=== PATIENT | female | born 1945 | race Caucasian/White ===

== ENCOUNTER 2022-03-04 13:30 | Observation (INO) ==
[2022-03-04] MEDS ORDERED: *HR* OxyCODONE Immed Rel 5 MG TABLET PO PRN (19:38)
[2022-03-04] MEDS ORDERED: Ondansetron ODT 4 MG TAB.RAPDIS SL PRN (19:38)
[2022-03-04] MEDS ORDERED: Naloxone 0.4 MG/ML INJ IVP PRN (19:38)
[2022-03-04] MEDS ORDERED: Melatonin 3 MG TABLET PO PRN (19:38)
[2022-03-04] MEDS ORDERED: Acetaminophen 325 MG TABLET PO PRN (19:38)
[2022-03-04] MEDS ORDERED: Perflutren Lipid Microsphere 1.3 ML in 0.9 % Sodium Chloride 8.7 ML IVP PRN (19:41)
[2022-03-04] MEDS ORDERED: Nitroglycerin 0.4 MG TAB.SUBL SL PRN (19:47)
[2022-03-04] MEDS ORDERED: *HR* Heparin 5,000 UNIT/ML VIAL IVP PRN ×2 (19:48)
[2022-03-04] MEDS ORDERED: Heparin 25,000UNIT/250ML 1/2NS 25,000 UNIT/250 ML IV.SOLN IVC SCH (20:00)
[2022-03-04 21:36] LABS: Hematocrit 36.3 % (35.3-44.9); Hemoglobin 12.8 g/dL (11.5-15.4); Mean Corpuscular HGB Conc 35.3 g/dL (31.6-35.5); Mean Corpuscular Hemoglobin 32.5 pg (28.0-33.3); Mean Corpuscular Volume 92.1 fL (83.0-100.0); Mean Platelet Volume 10.1 fL (9.4-12.4); Platelet Count 228 K/mcL (140-400); Red Blood Count 3.94 M/mcL (3.82-4.97); Red Cell Distribution Width 12.3 % (11.5-14.5); White Blood Count 6.6 K/mcL (4.3-11.1)
[2022-03-04 21:44] LABS: Heparin anti-factor XA UFH 0.35 IU/mL (0.30-0.70)
[2022-03-04 21:45] LABS: Prothrombin Time 11.6 Seconds (9.4-12.1)
[2022-03-04] MEDS: traZODone 50 MG TABLET PO PRN (21:48)
[2022-03-05 03:37] LABS: Hematocrit 36.2 % (35.3-44.9); Hemoglobin 12.2 g/dL (11.5-15.4); Mean Corpuscular HGB Conc 33.7 g/dL (31.6-35.5); Mean Corpuscular Hemoglobin 31.8 pg (28.0-33.3); Mean Corpuscular Volume 94.3 fL (83.0-100.0); Mean Platelet Volume 10.3 fL (9.4-12.4); Platelet Count 228 K/mcL (140-400); Red Blood Count 3.84 M/mcL (3.82-4.97); Red Cell Distribution Width 12.4 % (11.5-14.5); White Blood Count 5.9 K/mcL (4.3-11.1)
[2022-03-05 04:00] LABS: BUN/Creatinine Ratio 35 (6-26); Blood Urea Nitrogen 21 mg/dL (8-23); Calcium 9.4 mg/dL (8.6-10.3); Carbon Dioxide 28 mEq/L (23-29); Chloride 103 mEq/L (98-107); Chol/HDL Ratio 5.7 (0-4.9); Cholesterol 172 mg/dL (< 200); Glucose 144 mg/dL (70-105); HDL Cholesterol 30 mg/dL (40-59); Magnesium 1.7 mg/dL (1.6-2.6); Osmolality,Calculated 294 (280-300); Phosphorous 4.1 mg/dL (2.7-4.5); Potassium 3.3 mEq/L (3.5-5.1); Sodium 139 mEq/L (136-145); Triglycerides 463 mg/dL (< 150); eGFR For African Americans > 60 (> 60); eGFR For Non-African Americans > 60 (> 60)
[2022-03-05 04:10] LABS: Thyroid Stimulating Hormone 0.196 mcIU/mL (0.340-5.600)
[2022-03-05] MEDS ORDERED: Potassium Chloride Elixir 20 MEQ/15 ML UDC PO ONE (07:41)
[2022-03-05] MEDS ORDERED: Cholecalciferol (D-3) 1,000 UNIT (25MCG) TABLET PO SCH (09:00)
[2022-03-05] MEDS ORDERED: Aspirin 81 MG TAB.CHEW PO SCH (09:00)
[2022-03-05] MEDS ORDERED: *HR* FentaNYL (PF) 100 MCG/2 ML VIAL ONE (14:33)
[2022-03-05] MEDS ORDERED: 0.9 % Sodium Chloride 1,000 ML ONE (14:33)
[2022-03-05] MEDS ORDERED: *HR* Midazolam HCl 2 MG/2 ML VIAL ONE (14:33)
[2022-03-05] MEDS: traZODone 50 MG TABLET PO PRN (20:24)
[2022-03-05 23:42] VITALS: BP 119/68; PULSE 93; TEMP 97.8; O2SAT 91
[2022-03-06 11:36] LABS: Estimated Average Glucose 143 mg/dl; Hemoglobin A1C 6.6 %
== END 2022-03-06 00:57 | disposition short-term general hospital (02) ==
LOC: 2ANU → SUATTDRO 18:21
PROVIDERS: ADMIT Hospitalist; ATTEND Nurse Practitioner